=== PATIENT | female | born 2000 | race Caucasian/White ===

== ENCOUNTER 2020-07-20 06:10 | Emergency (ER) | payer OTHER ==
[~2020-07-20 06:10] MED LIST: AMOXICILLIN500 MG PO; PHENERGAN12.5 M1 PO; PRENATAL FORMU1 EACH PO
[2020-07-20] MEDS ORDERED: CYCLOBENZAPRINE10 MG PO (06:41)
[2020-07-20] MEDS ORDERED: ETODOLAC500 MG PO (06:41)
== END 2020-07-20 06:50 | disposition home or self-care (01) ==
LOC: FER 06:10
DX: S46.211A Strain of muscle, fascia and tendon of other parts of biceps, right arm, initial encounter (principal); X58.XXXA Exposure to other specified factors, initial encounter
CPT/HCPCS: 99283

== ENCOUNTER 2021-04-01 19:03 | Emergency (ER) | payer OTHER ==
[~2021-04-01 19:03] MED LIST changes: +CYCLOBENZAPRINE10 MG PO; +ETODOLAC500 MG PO
[2021-04-01 20:23] LABS: BASOPHIL 0.3 % (0-2); EOSINOPHIL 2.1 % (0-5); HGB 14.7 g/dl (12.5-16.0); LYMPHOCYTE 30.5 % (15-48); MCHC 33.4 g/dL (32.0-36.0); MCV 86.8 fL (78.0-100.0); MONOCYTE 7.3 % (0-12); MPV 9.7 fL (6.0-9.5); NEUTROPHIL 59.5 % (41-80); NRBC 0; PLT 343 K/uL (150-400); RBC 5.07 M/uL (4.20-5.40); RDW 12.3 % (11.5-14.0); WBC 11.9 K/uL (4.0-10.5)
[2021-04-01 20:34] LABS: ALBUMIN 3.9 g/dL (3.4-5.0); BILIRUBIN - TOTAL 0.2 mg/dL (0.2-1.0); BUN/CREAT RATIO (CALC) 17.3 RATIO; CREATININE 0.52 mg/dL (0.51-0.95); GLOBULIN (CALCULATION) 3.8 g/dL; TOTAL PROTEIN 7.7 g/dL (6.4-8.2)
[2021-04-01 20:36] LABS: BILIRUBIN NEGATIVE (NEGATIVE); BLOOD NEGATIVE Ery/uL (NEGATIVE); CLARITY CLEAR (CLEAR); COLOR YELLOW (YELLOW); GLUCOSE (U) NORMAL (NORMAL); LEUKOCYTES NEGATIVE Leu/uL (NEGATIVE); NITRITE NEGATIVE (NEGATIVE); PROTEIN NEGATIVE (NEGATIVE); SPECIFIC GRAVITY 1.025 (1.001-1.030); UROBILINOGEN 0.2 mg/dL (0.2-1.0)
[2021-04-01 20:38] LABS: AMORPHOUS PHOSPHATE CRYSTALS MODERATE
[2021-04-01] MEDS ORDERED: ONDANSETRON ODT4 MG PO (22:57)
== END 2021-04-01 23:58 | disposition home or self-care (01) ==
LOC: FER 19:03
PROVIDERS: Physician Assistant
DX: R10.31 Right lower quadrant pain (principal)
CPT/HCPCS: 36415; 80053; 81001; 85025; J1885

== ENCOUNTER 2021-07-24 04:26 | Emergency (ER) | payer OTHER ==
[~2021-07-24 04:26] MED LIST changes: +ONDANSETRON ODT4 MG PO
[2021-07-24] MEDS ORDERED: KEFLEX250 MG PO (05:02)
[2021-07-24] MEDS ORDERED: IBUPROFEN800 MG PO ×2 (05:02→05:46)
[2021-07-24] MEDS ORDERED: CEPHALEXIN500 MG PO (05:46)
== END 2021-07-24 05:54 | disposition home or self-care (01) ==
LOC: FER 04:26
DX: J03.90 Acute tonsillitis, unspecified (principal); F17.200 Nicotine dependence, unspecified, uncomplicated; Z20.822 Contact with and (suspected) exposure to COVID-19
CPT/HCPCS: 87880; 99283; J1100; U0002

== ENCOUNTER 2021-08-20 14:58 | Emergency (ER) | payer OTHER ==
[~2021-08-20 14:58] MED LIST changes: +CEPHALEXIN500 MG PO; +IBUPROFEN800 MG PO; +KEFLEX250 MG PO
[2021-08-20 15:57] LABS: BILIRUBIN NEGATIVE (NEGATIVE); BLOOD NEGATIVE Ery/uL (NEGATIVE); COLOR YELLOW (YELLOW); GLUCOSE (U) NORMAL (NORMAL); LEUKOCYTES 3+ Leu/uL (NEGATIVE); NITRITE NEGATIVE (NEGATIVE); PROTEIN NEGATIVE (NEGATIVE); UROBILINOGEN 0.2 mg/dL (0.2-1.0); pH 6.5 (5.0-9.0)
[2021-08-20 15:57] LABS: BASOPHIL 0.2 % (0-2); HCT 39.5 % (37.0-47.0); HGB 13.3 g/dl (12.5-16.0); LYMPHOCYTE 23.5 % (15-48); MCH 28.9 pg (25.0-31.0); MCHC 33.7 g/dL (32.0-36.0); MCV 85.7 fL (78.0-100.0); MONOCYTE 5.8 % (0-12); MPV 9.5 fL (6.0-9.5); NEUTROPHIL 69.2 % (41-80); NRBC 0; PLT 285 K/uL (150-400); RBC 4.61 M/uL (4.20-5.40); RDW 12.7 % (11.5-14.0); WBC 12.1 K/uL (4.0-10.5)
[2021-08-20 16:02] LABS: CLARITY HAZY (CLEAR)
[2021-08-20 16:03] LABS: AMORPHOUS URATES CRYSTALS MODERATE
[2021-08-20 16:04] LABS: BACTERIA 1+; SQUAMOUS EPITHELIAL CELLS 20-50; URINARY RBC RARE; URINARY WBC 20-50
[2021-08-20 16:19] LABS: CREATININE 0.54 mg/dL (0.51-0.95); POTASSIUM 3.7 mmol/L (3.5-5.1)
[2021-08-20] MEDS ORDERED: MACROBID100 MG PO (17:11)
== END 2021-08-20 17:15 | disposition home or self-care (01) ==
LOC: FER 14:58
PROVIDERS: Nurse Practitioner Family
DX: O23.42 Unspecified infection of urinary tract in pregnancy, second trimester (principal); N39.0 Urinary tract infection, site not specified; O99.891 Other specified diseases and conditions complicating pregnancy; R11.0 Nausea; O99.332 Smoking (tobacco) complicating pregnancy, second trimester; F17.210 Nicotine dependence, cigarettes, uncomplicated; Z3A.20 20 weeks gestation of pregnancy
CPT/HCPCS: 36415; 80048; 81001; 84702; 85025; 86900; 86901; 87088; 99284